=== PATIENT | male | born 1975 | race Caucasian/White ===

== ENCOUNTER 2020-11-07 09:36 | Emergency (ER) | payer OTHER ==
[~2020-11-07] VITALS: Ht 193 cm; Wt 93.9 kg
[2020-11-07] MEDS ORDERED: EFFEXOR XR37.5 MG PO (09:51)
== END 2020-11-07 18:36 | disposition short-term general hospital (02) ==
LOC: ED 09:36
DX: S83.105A Unspecified dislocation of left knee, initial encounter (principal); S83.512A Sprain of anterior cruciate ligament of left knee, initial encounter; S83.422A Sprain of lateral collateral ligament of left knee, initial encounter; S83.412A Sprain of medial collateral ligament of left knee, initial encounter; Z20.822 Contact with and (suspected) exposure to COVID-19; W01.0XXA Fall on same level from slipping, tripping and stumbling without subsequent striking against object, initial encounter
CPT/HCPCS: 73706; 73721; 80053; 85025; 99285-25; C9803; J3010; Q9967; U0003